=== PATIENT | female | born 1995 | race Caucasian/White ===

== ENCOUNTER 2017-05-16 21:16 | Emergency (ER) | payer OTHER ==
--- NOTE | 2017-05-16 22:03 | RAD REPORT ---
EXAM DESCRIPTION: RAD - Chest Single View - 05/16/2017 9:54 pm CLINICAL HISTORY: Chest pain. Recent PICC line placement. COMPARISON: 05/16/2017 FINDINGS: Portable technique limits examination quality. The lungs are grossly clear. The heart is normal in size. No displaced fractures.The left-sided PICC line appears to be in the region of the distal SVC, slightly retracted relative to the prior position . IMPRESSION: No acute intrathoracic process suspected.
[2017-05-16 22:52] LABS: Barbiturates NEGATIVE; Benzodiazepines NEGATIVE; Cocaine NEGATIVE; METHAMPHETAM NEGATIVE; Opiates NEGATIVE; Phencyclidine NEGATIVE; THC Cannibis NEGATIVE
--- NOTE | 2017-05-16 23:12 | ER ---
Nurse's Notes [facility] Name: Anita Coleman Age: 21 yrs Sex: Female : 1995 Arrival Date: 05/16/2017 Time: 21:17 Bed 20 Private MD: Diagnosis: Encounter to check PICC placement;Palpitations Presentation: 05/16 21:27 Presenting complaint: Patient states: she had a PICC line placed today for IV abx aa1 therapy and reports when they initially placed the line they inserted it too far and had to back it out and ever since she has been having palpitations and intermittently feels like something is hitting her in the chest. NAD noted. Transition of care: patient was not received from another setting of care. Onset of symptoms was May 16, 2017. Care prior to arrival: None. 21:27 Method Of Arrival: Ambulatory aa1 21:27 Acuity: JAYJAY 3 aa1 Triage Assessment: 21:30 General: Appears in no apparent distress. comfortable, Behavior is calm, cooperative, aa1 appropriate for age. Pain: Denies pain. 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 - Social history:: Smoking status: Patient/guardian denies using tobacco. Screenin:45 Abuse screen: Denies threats or abuse. Nutritional screening: No deficits noted. jd3 Tuberculosis screening: No symptoms or risk factors identified. Fall Risk IV access (20 points). Total Prater Fall Scale indicates No Risk (0-24 pts). Assessment: 21:43 General: Appears in no apparent distress. uncomfortable, Behavior is calm, cooperative, jd3 appropriate for age, Reports chest pressure. Pain: Denies pain. Neuro: Level of Consciousness is awake, alert, obeys commands, Oriented to person, place, time, situation. Cardiovascular: Heart tones S1 S2 present Capillary refill < 3 seconds Patient's skin is warm and dry. Respiratory: Airway is patent Respiratory effort is even, unlabored, Respiratory pattern is regular, symmetrical, Breath sounds are clear bilaterally. GI: Abdomen is round Patient currently denies diarrhea, nausea, vomiting. : No signs and/or symptoms were reported regarding the genitourinary system. EENT: No signs and/or symptoms were reported regarding the EENT system. Derm: Skin is intact, Skin is dry, Skin is normal, Skin temperature is warm. Musculoskeletal: Circulation, motion, and sensation intact. Range of motion: intact in all extremities. 22:38 Reassessment: Patient appears in no apparent distress at this time. Patient and/or jd3 family updated on plan of care and expected duration. Pain level reassessed. Patient is alert, oriented x 3, equal unlabored respirations, skin warm/dry/pink. 23:31 Reassessment: Patient appears in no apparent distress at this time. Patient and/or jd3 family updated on plan of care and expected duration. Pain level reassessed. Patient is alert, oriented x 3, equal unlabored respirations, skin warm/dry/pink. pt and family reported understanding of discharge instructions and fallow-up care. Vital Signs: 21:30 BP 129 / 82; Pulse 81; Resp 16; Temp 97.8; Pulse Ox 100% on R/A; Weight 79.38 kg; aa1 Height 5 ft. 4 in. (162.56 cm); Pain 0/10; 22:31 BP 111 / 63; Pulse 68; Resp 14; Pulse Ox 99% on R/A; mt 23:27 BP 123 / 74; Pulse 70; Resp 16; Pulse Ox 98% on R/A; mt 21:30 Body Mass Index 30.04 (79.38 kg, 162.56 cm) aa1 ED Course: 21:17 Patient arrived in ED. am2 21:28 Triage completed. aa1 21:30 Arm band placed on right wrist. aa1 21:32 Андрей Mota RN is Primary Nurse. jd3 21:34 Mary Lou Saravia FNP-C is PHCP. snw 21:34 Saulo Peters MD is Attending Physician. snw 21:46 Patient has correct armband on for positive identification. Placed in gown. Bed in low jd3 position. Call light in reach. Side rails up X2. Adult w/ patient. 23:31 No provider procedures requiring assistance completed. Patient did not have IV access jd3 during this emergency room visit. Administered Medications: No medications were administered Outcome: 23:12 Discharge ordered by . shala 23:31 Discharged to home ambulatory, with family. tawanna 23:31 Condition: stable 23:31 Discharge instructions given to patient, family, Instructed on discharge instructions, follow up and referral plans. Demonstrated understanding of instructions, follow-up care. 23:32 Patient left the ED. tawanna Signatures: Karol García RN RN aa1 Mary Lou Saravia, ELECTRIC STOP INSTALLER-C ELECTRIC STOP INSTALLER-Merylw Darleen Field Moriah mt Davies, Jonathon, RN RN jd3
--- NOTE | 2017-05-16 23:12 | EDPHYS ---
Physician Documentation [facility] Name: Anita Coleman Age: 21 yrs Sex: Female : 1995 Arrival Date: 05/16/2017 Time: 21:17 Bed 20 Private MD: ED Physician Saulo Peters HPI: 05/16 21:44 This 21 yrs old Female presents to ER via Ambulatory with complaints of snw Palpitations. 21:44 The patient presents with a history of irregular heart beat. Context: The symptoms snw occur pt had PICC line placed today for terminal carman abx - Merrem for chronic UTI. Dr. Ledesma is managing. Pt states PICC was too long and had to be pulled back. C/o palpitations since. 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 - Social history:: Smoking status: Patient/guardian denies using tobacco. ROS: 21:42 Constitutional: Negative for fever, chills, and weight loss, Eyes: Negative for injury, snw pain, redness, and discharge, ENT: Negative for injury, pain, and discharge, Neck: Negative for injury, pain, and swelling, Cardiovascular: Negative for chest pain and edema, +palpitations Respiratory: Negative for shortness of breath, cough, wheezing, and pleuritic chest pain, Abdomen/GI: Negative for abdominal pain, nausea, vomiting, diarrhea, and constipation, Back: Negative for injury and pain, : Negative for injury, bleeding, discharge, and swelling, MS/Extremity: Negative for injury and deformity, Skin: Negative for injury, rash, and discoloration, Neuro: Negative for headache, weakness, numbness, tingling, and seizure, Psych: Negative for depression, anxiety, suicide ideation, homicidal ideation, and hallucinations. Exam: 21:42 Constitutional: This is a well developed, well nourished patient who is awake, alert, snw and in no acute distress. Head/Face: Normocephalic, atraumatic. Eyes: Pupils equal round and reactive to light, extra-ocular motions intact. Lids and lashes normal. Conjunctiva and sclera are non-icteric and not injected. Cornea within normal limits. Periorbital areas with no swelling, redness, or edema. ENT: Nares patent. No nasal discharge, no septal abnormalities noted. Tympanic membranes are normal and external auditory canals are clear. Oropharynx with no redness, swelling, or masses, exudates, or evidence of obstruction, uvula midline. Mucous membranes moist. Neck: Trachea midline, no thyromegaly or masses palpated, and no cervical lymphadenopathy. Supple, full range of motion without nuchal rigidity, or vertebral point tenderness. No Meningismus. Chest/axilla: Normal chest wall appearance and motion. Nontender with no deformity. No lesions are appreciated. Cardiovascular: Regular rate and rhythm with a normal S1 and S2. No gallops, murmurs, or rubs. Normal PMI, no JVD. No pulse deficits. Respiratory: Lungs have equal breath sounds bilaterally, clear to auscultation and percussion. No rales, rhonchi or wheezes noted. No increased work of breathing, no retractions or nasal flaring. Abdomen/GI: Soft, non-tender, with normal bowel sounds. No distension or tympany. No guarding or rebound. No evidence of tenderness throughout. Back: No spinal tenderness. No costovertebral tenderness. Full range of motion. Skin: Warm, dry with normal turgor. Normal color with no rashes, no lesions, and no evidence of cellulitis. MS/ Extremity: Pulses equal, no cyanosis. Neurovascular intact. Full, normal range of motion. Neuro: Awake and alert, GCS 15, oriented to person, place, time, and situation. Cranial nerves II-XII grossly intact. Motor strength 5/5 in all extremities. Sensory grossly intact. Cerebellar exam normal. Normal gait. Psych: Awake, alert, with orientation to person, place and time. Behavior, mood, and affect are within normal limits. Vital Signs: 21:30 BP 129 / 82; Pulse 81; Resp 16; Temp 97.8; Pulse Ox 100% on R/A; Weight 79.38 kg; aa1 Height 5 ft. 4 in. (162.56 cm); Pain 0/10; 22:31 BP 111 / 63; Pulse 68; Resp 14; Pulse Ox 99% on R/A; mt 23:27 BP 123 / 74; Pulse 70; Resp 16; Pulse Ox 98% on R/A; mt 21:30 Body Mass Index 30.04 (79.38 kg, 162.56 cm) aa1 MDM: 21:34 Patient medically screened. snw 05/17 00:11 Data reviewed: vital signs, nurses notes. Data interpreted: Pulse oximetry: on room air snw is 98 %. Interpretation: normal. Counseling: I had a detailed discussion with the patient and/or guardian regarding: the historical points, exam findings, and any diagnostic results supporting the discharge/admit diagnosis, radiology results, the need for outpatient follow up, to return to the emergency department if symptoms worsen or persist or if there are any questions or concerns that arise at home. Special discussion: Based on the history and exam findings, there is no indication for further emergent testing or inpatient evaluation. I discussed with the patient/guardian the need to see the primary care provider for further evaluation of the symptoms. 05/16 21:27 Order name: Urine Drug Screen [facility] 05/16 21:27 Order name: Urine Microscopic Only [facility] 05/16 21:35 Order name: Chest Single View XRAY [facility] 05/16 22:40 Order name: Urine Dipstick--Ancillary (enter results) [facility] 05/16 22:40 Order name: Urine --Ancillary (enter results) [facility] 05/16 22:53 Order name: Urine Drug Screen; Complete Time: 23:03 EDMS 05/16 21:27 Order name: EKG; Complete Time: 21:28 [facility] 05/16 21:27 Order name: EKG - Nurse/Tech; Complete Time: 21:49 snw 05/16 21:27 Order name: Urine Test (obtain specimen); Complete Time: 22:38 snw 05/16 21:27 Order name: Urine Dipstick-Ancillary (obtain specimen); Complete Time: 22:38 [facility] 05/16 22:04 Order name: RAD; Complete Time: 22:06 EDMS Administered Medications: No medications were administered Disposition: 07:08 Co-signature as Attending Physician, Saulo Peters MD I agree with the assessment and fran plan of care. Disposition: 05/16/17 23:12 Discharged to Home. Impression: Encounter to check PICC placement, Palpitations. - Condition is Stable. - Discharge Instructions: Palpitations, PICC Home Guide. - Medication Reconciliation Form, Thank You Letter, Antibiotic Education, Prescription Opioid Use form. - Follow up: Private Physician; When: 1 - 2 days; Reason: Recheck today's complaints, Continuance of care, Re-evaluation by your physician. Follow up: Emergency Department; When: As needed; Reason: Worsening of condition. Signatures: Dispatcher [employer] Karol Shannon, RN RN aa1 Saulo Peters MD MD cha Therrien, Shelly, COOLER SERVICE SUPERVISOR-C COOLER SERVICE SUPERVISOR-Csnw Андрей Mota RN RN jd3
[2017-05-16 23:55] LABS: Urine Bacteria <20 /HPF (<20); Urine Culture Reflex Order REFLEXED; Urine RBC <5 /HPF (NONE SEEN)
[2017-05-17 04:19] LABS: Urine Blood NEGATIVE (NEG); Urine Glucose NEGATIVE (NEG); Urine Protein NEGATIVE (NEG)
--- NOTE | 2017-05-17 07:26 | EKG ---
Test Date: 2017-05-16 Test Time: 21:42:30 [place] Attendant: ROSANNE MEASUREMENT RESULTS: Intervals: Rate: 73 SC: 144 QRSD: 84 QT: 392 QTc: 431 [place]: P: 61 SC: 144 QRS: 76 T: 70 INTERPRETIVE STATEMENTS: Normal sinus rhythm Normal ECG No previous ECG available for comparison Electronically Signed On 05-17-17 07:25:05 CDT by Steven Milner
== END 2017-05-16 23:32 | disposition home or self-care (01) ==
LOC: ER 21:16
DX: Z45.2 Encounter for adjustment and management of vascular access device (principal)
CPT/HCPCS: 71045; 80307; 81003; 81015; 81025; 87086; 87088; 93005; 99281